=== PATIENT | female | born 1965 | race Caucasian/White ===

== ENCOUNTER 2017-10-28 05:43 | Emergency (ER) | payer OTHER | END 2017-10-28 09:27 | disposition home or self-care (01) | LOC: FTE 05:43 | DX: J06.9 Acute upper respiratory infection, unspecified (principal) | CPT/HCPCS: 71045; 87400; 99284-25 ==

== ENCOUNTER 2017-12-18 05:16 | Emergency (ER) | payer OTHER ==
[2017-12-18 08:43] LABS: TROPONIN-I < 0.012 ng/ml (0.00-0.12)
[2017-12-18] MEDS: LIDOCAINE 1% (MDV) 10 ML INJ INJ (08:59)
[2017-12-18] MEDS: CEFTRIAXONE 1 GM INJ IM (08:59)
== END 2017-12-18 09:18 | disposition home or self-care (01) ==
LOC: FTE 05:16
DX: J18.9 Pneumonia, unspecified organism (principal)
CPT/HCPCS: 71045; 84484; 96372; 99285-25

== ENCOUNTER 2017-12-21 10:57 | Emergency (ER) | payer OTHER | END 2017-12-21 14:44 | disposition home or self-care (01) | LOC: FTE 10:57 | DX: J06.9 Acute upper respiratory infection, unspecified (principal) | CPT/HCPCS: 71046; 99284-25 ==